=== PATIENT | female | born 1995 | race Caucasian/White ===

== ENCOUNTER 2018-10-31 18:12 | Emergency (ER) | payer OTHER ==
--- NOTE | 2018-10-31 19:06 | CT ---
EXAMINATION TYPE: CT brain wo con DATE OF EXAM: 10/31/2018 COMPARISON: None HISTORY: Head injury. CT DLP: 1056.4 mGycm. Automated Exposure Control for Dose Reduction was Utilized. TECHNIQUE: CT scan of the head is performed without contrast. FINDINGS: Ventricles have normal size. There is no mass effect nor midline shift. There is no sign of intracranial hemorrhage. There is right frontal scalp hematoma. Calvarium is intact. IMPRESSION: Negative CT scan of the brain. Right frontal scalp soft tissue swelling.
--- NOTE | 2018-10-31 19:10 | ED ---
Head Injury HPI - General Chief complaint: Head Injury Stated complaint: Kicked in head by a cow Time Seen by Provider: 10/31/18 18:26 Source: patient, RN notes reviewed Mode of arrival: ambulatory Limitations: no limitations - History of Present Illness Initial comments: This is a 21-year-old female with a benign past medical history states that she was trimming a male calm this prior to arrival when she was kicked in the right side of her forehead by the cow. She denies any loss of consciousness but does state that she was knocked down. She complains localized pain to her head she denies any neck or back pain a loss of function to her upper or lower extremities. No blurry vision. No other modifying factors. No other injuries reported MD Complaint: head injury - Related Data Home Medications Medication Instructions Recorded Confirmed No Known Home Medications 09/10/13 10/31/18 Allergies/Adverse reactions: Allergies Allergy/AdvReac Type Severity Reaction Status Date / Time No Known Allergies Allergy Verified 10/31/18 18:32 Review of Systems ROS Statement: Those systems with pertinent positive or pertinent negative responses have been documented in the HPI. ROS Other: All systems not noted in ROS Statement are negative. Past Medical History Past Medical History: No Reported History History of Any Multi-Drug Resistant Organisms: None Reported Past Surgical History: No Surgical Hx Reported Past Psychological History: No Psychological Hx Reported Smoking Status: Never smoker Past Alcohol Use History: None Reported Past Drug Use History: None Reported General Exam - General Exam Comments Initial Comments: This a well-developed well-nourished awake alert oriented 3 female who demonstrates a Fang Coma Scale of 15 Limitations: no limitations General appearance: alert, in no apparent distress Head exam: Present: normocephalic, other (Hematoma noted over the right forehead and frontal scalp) Eye exam: Present: normal appearance, PERRL, EOMI. Absent: scleral icterus, conjunctival injection, periorbital swelling ENT exam: Present: normal exam, mucous membranes moist Neck exam: Present: normal inspection. Absent: tenderness, meningismus, lymp hadenopathy Respiratory exam: Present: normal lung sounds bilaterally. Absent: respiratory distress, wheezes, rales, rhonchi, stridor Cardiovascular Exam: Present: regular rate, normal rhythm, normal heart sounds. Absent: systolic murmur, diastolic murmur, rubs, gallop, clicks GI/Abdominal exam: Present: soft, normal bowel sounds. Absent: distended, tenderness, guarding, rebound, rigid Extremities exam: Present: normal inspection, full ROM, normal capillary refill. Absent: tenderness, pedal edema, joint swelling, calf tenderness Back exam: Present: normal inspection Neurological exam: Present: alert, oriented X3, CN II-XII intact Psychiatric exam: Present: normal affect, normal mood Skin exam: Present: warm, dry, intact, normal color. Absent: rash Course Vital Signs 10/31/18 18:18 Temperature 98.2 F Pulse Rate 70 Respiratory 18 Rate Blood Pressure 145/85 O2 Sat by Pulse 100 Oximetry Medical Decision Making - Medical Decision Making Patient remains awake alert oriented 3 we did have a long discussion with the patient and her family regarding findings patient will be discharged. I did recommend ice for next 24-48 hours and Advil or Tylenol for pain. - Radiology Data Radiology results: report reviewed (I did review the imaging and report no acute findings except for the noted hematoma), image reviewed Disposition Clinical Impression: Contusion of scalp, Hematoma of scalp Disposition: HOME SELF-CARE Condition: Good Instructions (If sedation given, give patient instructions): Hematoma (ED), Contusion in Adults (ED) Additional Instructions: Ice 24-48 hours, [id number] Tylenol or ibuprofen for pain. Is patient prescribed a controlled substance at d/c from ED?: No Referrals: Shalonda Hewitt DO [Primary Care Provider] - 1-2 days
[2018-10-31 19:30] VITALS: BP 121/72; PULSE 59; RESP 15; TEMP 98.6
== END 2018-10-31 19:32 | disposition home or self-care (01) ==
LOC: EC 18:12
DX: S00.03XA Contusion of scalp, initial encounter (principal); R40.2412 Glasgow coma scale score 13-15, at arrival to emergency department; W55.22XA Struck by cow, initial encounter
CPT/HCPCS: 70450; 99283